=== PATIENT | female | born 1955 | race African-American/Black ===

== ENCOUNTER 2021-05-27 13:50 | Outpatient (CLI) | payer MEDICARE, SELFPAY | END 2021-05-27 13:51 | disposition home or self-care (01) | LOC: ANHAUDIO 13:52 | PROVIDERS: PCP Internal Medicine; Visit Provider Otolaryngology | DX: H90.3 Sensorineural hearing loss, bilateral (principal) | CPT/HCPCS: 92557; 92567 ==

== ENCOUNTER 2021-07-30 13:00 | Outpatient (RCR) | payer MEDICARE, SELFPAY | END 2021-07-30 23:59 | disposition home or self-care (01) | LOC: ANHAUDIO 13:00 | PROVIDERS: PCP Internal Medicine Gastroenterology; Visit Provider Otolaryngology | DX: Z46.1 Encounter for fitting and adjustment of hearing aid (principal); H90.3 Sensorineural hearing loss, bilateral | CPT/HCPCS: 99199; V5261 ==